=== PATIENT | female | born 1980 | race Two or more races ===

== ENCOUNTER 2023-08-27 17:37 | Emergency (ER) | payer OTHER ==
[~2023-08-27] VITALS: Ht 162.6 cm; Wt 73.9 kg
[2023-08-27] MEDS ORDERED: KETOROLAC TROMETHAMINE 30 MG VIAL IV ONE (20:15)
[2023-08-27] MEDS ORDERED: 0.9 % SODIUM CHLORIDE 1,000 ML IV ONE (20:15)
[2023-08-27] MEDS ORDERED: FAMOTIDINE/PF 20 MG/2 ML VIAL IV PUSH ONE (20:15)
[2023-08-27] MEDS ORDERED: HYOSCYAMINE SULFATE 0.125 MG TAB.SUBL SL ONE (20:15)
[2023-08-27 20:40] LABS: HEMATOCRIT 36.1 % (36.0-45.00); HEMOGLOBIN 12.2 g/dL (12.0-15.00); MEAN CELL VOLUME 95.6 fL (80.00-100.00); MEAN CORPUSCULAR HEMOGLOBIN 32.4 pg (27.00-32.0); MEAN CORPUSCULAR HGB CONC 33.9 g/dl (32.0-36.0); PLATELET COUNT 266 K/uL (150-450); RED BLOOD COUNT 3.78 M/uL (4.00-6.00); RED CELL DISTRIBUTION WIDTH 13.6 % (11.5-14.5)
[2023-08-27 20:54] LABS: PH,URINE 6.5 (5.0-8.0); URINE APPEARANCE Clear; URINE BILIRRUBIN Negative (NEGATIVE); URINE BLOOD Negative; URINE COLOR Yellow; URINE GLUCOSE Negative (NEGATIVE); URINE LEUKOCYTE Negative; URINE NITRATE Negative; URINE PROTEIN Negative (NEGATIVE); URINE UROBILINOGEN 0.2 E.U./dl
[2023-08-27 20:57] LABS: URINE BACTERIA 1026.4 uL (0.0-1933); URINE EPITHELIAL CELLS 10.6 uL (0.0-38.8); URINE RBC 5.4 uL (0.0-20.8); URINE WBC 1.8 uL (0.0-23.2)
[2023-08-27 21:08] LABS: ALBUMIN 3.6 gm/dL (3.4-5.0); BILIRUBIN TOTAL 0.48 mg/dL (0.3-1.2); CREATININE SERUM 0.71 mg/dL (0.55-1.02); GFR 90.27; GLOBULINA 4.3 G/DL (2.4-3.5); POTASSIUM 3.5 mEq/L (3.5-5.1); TOTAL PROTEIN 7.9 gm/dL (6.4-8.2)
[2023-08-27] MEDS ORDERED: PIPERACILLIN/TAZOBACTAM SODIUM 3.375 GM VIAL IV ONE (21:45)
== END 2023-08-27 22:16 | disposition home or self-care (01) ==
LOC: ER 17:38
PROVIDERS: General Practice
DX: K57.32 Diverticulitis of large intestine without perforation or abscess without bleeding (principal); R10.32 Left lower quadrant pain

== ENCOUNTER 2025-03-07 11:48 | Emergency (ER) | payer OTHER ==
[~2025-03-07] VITALS: Ht 162.6 cm; Wt 79.4 kg
[2025-03-07] MEDS ORDERED: FLONASE ALLERG9.9 ML NASAL (12:42)
[2025-03-07] MEDS ORDERED: KETOROLAC TROMETHAMINE 15 MG VIAL IU ONE (13:30)
[2025-03-07] MEDS ORDERED: FAMOTIDINE/PF 20 MG in 0.9 % SODIUM CHLORIDE 8 ML IV PUSH ONE (13:30)
[2025-03-07] MEDS ORDERED: ONDANSETRON HCL 4 MG in 0.9 % SODIUM CHLORIDE 50 ML IV ONE (13:30)
[2025-03-07] MEDS ORDERED: 0.9 % SODIUM CHLORIDE 1,000 ML IV SCH (13:45)
[2025-03-07] MEDS ORDERED: ONDANSETRON HCL 2 MG/ML VIAL ONE (14:09)
[2025-03-07] MEDS ORDERED: KETOROLAC TROMETHAMINE 30 MG VIAL ONE (14:09)
[2025-03-07] MEDS ORDERED: FAMOTIDINE/PF 20 MG/2 ML VIAL ONE (14:10)
[2025-03-07 14:46] LABS: BASO % 0.4 % (0.1-1.2); EOS # 0.21 (0.04-0.54); EOS % 2.3 % (0.7-7.0); LYMPH # 1.51 (1.18-3.74); LYMPH % 16.4 % (19.3-53.1); MEAN PLATELET VOLUME 10.70 fl (9.4-12.4); MONO # 0.61 (0.24-0.82); MONO % 6.6 % (4.7-12.5); NEUT # 6.82 (1.56-6.13); NEUT % 74.1 % (34.0-71.1); RED CELL DISTRIBUTION WIDTH 13.5 % (11.6-14.4)
[2025-03-07 15:01] LABS: URINE APPEARANCE Clear; URINE BILIRRUBIN Negative (NEGATIVE); URINE BLOOD Negative; URINE COLOR Yellow; URINE GLUCOSE Negative (NEGATIVE); URINE KETONE Negative (NEGATIVE); URINE LEUKOCYTE Negative; URINE NITRATE Negative; URINE PROTEIN Negative (NEGATIVE); URINE UROBILINOGEN 0.2 E.U./dl
[2025-03-07 15:04] LABS: URINE BACTERIA 2328.0 uL (0.0-1933); URINE EPITHELIAL CELLS 31.2 uL (0.0-38.8); URINE RBC 13.4 uL (0.0-20.8); URINE WBC 11.0 uL (0.0-23.2)
[2025-03-07 15:14] LABS: INR 0.97
[2025-03-07 15:17] LABS: URINE CAST 0.00 uL (0.0-1.40)
[2025-03-07 16:00] LABS: ALT/SGPT 21.0 U/L (12-78); AST/SGOT 15.0 U/L (15-37); BILIRUBIN TOTAL 0.21 mg/dL (0.3-1.2); BUN CREA RATIO 20.0 (7.0-25.0); CREATININE SERUM 0.74 mg/dL (0.55-1.02); GFR 85.26; GLOBULINA 3.6 G/DL (2.4-3.5); GLUCOSE FASTING 92.0 mg/dL (65-100); OSMOLALITY SERUM 285.0 MOSM/KG (275-295)
== END 2025-03-07 18:50 | disposition home or self-care (01) ==
LOC: ER 11:49
PROVIDERS: General Practice
DX: R10.32 Left lower quadrant pain (principal); K57.30 Diverticulosis of large intestine without perforation or abscess without bleeding; N28.1 Cyst of kidney, acquired